=== PATIENT | female | born 1965 | race Caucasian/White ===

== ENCOUNTER 2021-02-13 01:20 | Emergency (ER) | payer OTHER, SELFPAY ==
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
[2021-02-13 01:28] VITALS: BP 152/93; PULSE 115; RESP 18; TEMP 36.8; O2SAT 98
--- NOTE | 2021-02-13 02:11 | PC.NURSE ---
[facility] they are willing to take the patient home but they are currently busy they will come get her when they are free. Rn discussed this with the patient she just wants to leave.
[2021-02-13 02:12] VITALS: BP 139/85; PULSE 101; RESP 18; O2SAT 100
== END 2021-02-13 02:13 | disposition home or self-care (01) ==
PROVIDERS: Emergency Provider Emergency Medicine; PCP Nurse Practitioner
DX: F43.0 Acute stress reaction (principal); S61.512A Laceration without foreign body of left wrist, initial encounter; R45.88 Nonsuicidal self-harm; W26.9XXA Contact with unspecified sharp object(s), initial encounter
CPT/HCPCS: 99282

== ENCOUNTER 2021-10-11 18:35 | Emergency (ER) | payer OTHER, SELFPAY ==
--- NOTE | ~2021-10-11 | XR_ITS ---
EXAM: XR foot RT min 3V DATE: 10/11/2021 18:52 HISTORY: diffuse rt foot pain for weeks ? etiology . COMPARISON: None available. FINDINGS: Decreased mineralization. No fracture or dislocation. No lytic or blastic lesion. Joint sp aces are maintained. Plantar and Achilles enthesopathy. No erosion or periosteal change. Soft tissues within normal limits. IMPRESSION: No acute osseous finding in the right foot. Reviewed, dictated and finalized at location K.
[2021-10-11 18:42] VITALS: BP 132/65; PULSE 108; RESP 16; TEMP 36.3; O2SAT 99
--- NOTE | 2021-10-11 18:45 | ED.LOWEXIN ---
HPI - Extremity Injury (Lower) General Chief Complaint: Extremity Injury, Lower Stated Complaint: right foot pain Time Seen by Provider: 10/11/21 18:41 Source: patient and RN notes reviewed Mode of arrival: ambulatory Limitations: no limitations History of Present Illness HPI Narrative: 56-year-old female presents to [facility] with complaints of right foot pain. Patient complains of pain to the dorsal aspect of right foot. Denies any injury. No treatment prior to arrival. Patient reports that it was swollen earlier. Related Data Home Medications Medication Instructions Recorded Confirmed albuterol sulfate 90 mcg/actuation inh inhalation 10/11/21 aerosol inhaler buspirone 7.5 mg tablet tablet 10/11/21 diazepam 2 mg tablet tablet 10/11/21 duloxetine 30 mg capsule,delayed cap PO 10/11/21 release duloxetine 60 mg capsule,delayed cap PO 10/11/21 release mirtazapine 30 mg tablet tablet 10/11/21 prazosin 5 mg capsule cap 10/11/21 quetiapine 100 mg tablet tablet 10/11/21 trazodone 100 mg tablet tablet 10/11/21 Allergies Allergy/AdvReac Type Severity Reaction Status Date / Time Penicillins Allergy Unknown HIVES,RED Verified 10/14/16 10:10 FACE Review of Systems Review of Systems: All systems reviewed & are unremarkable except as noted in HPI and below Constitutional: Constitutional: Reports no additional constitutional complaints, Denies chills and Denies fever(s) Eyes: Eyes: Reports no additional eye complaints ENT: Reports system reviewed and no additional complaints, except as documented Cardiovascular: Cardiovascular: Reports no additional cardiovascular complaints Respiratory: Respiratory: Reports no additional respiratory complaints Gastrointestinal: Gastrointestinal: Reports no additional gastrointestinal complaints Musculoskeletal: Musculoskeletal: Reports as per HPI and Reports arthralgias (Right dorsal foot) Integumentary/Breasts: Skin/Breast: Reports system reviewed and no additional complaints, except as docu Neurologic: Reports system reviewed and no additional complaints, except as documented Psychiatric: Psychiatric: Reports no additional psychiatric complaints Allergic/Immunologic: Allergic/Immunologic: Reports no additional allergic/immunologic complaints [facility] Past Medical History Medical History (Updated 10/11/21 @ 20:18 by Shellie Chao APRN) Anxiety and depression Asthma Social History Social History Substance use type: does not use Comments At the time of my signature, I reviewed and agree with the nursing past medical, surgical, social, and family history. There is no relevant family history pertinent to the patient complaint. Exam Const: General: healthy appearing, no acute distress and alert Nutritional Appearance: well nourished Orientation/consciousness: patient oriented x3 Limitations: no limitations HENMT: Head: normal to inspection Ears: external ears normal Eyes: General: appearance normal, both eyes and all related structures Pupils: Equal, round and reactive pupils present Neck: Neck: normal visual inspection, no lymphadenopathy and no meningeal signs Chest: Chest palpation & inspection: normal inspection of the chest Resp: Effort & Inspection: normal respiratory effort and no use of accessory muscles Auscultation: clear to auscultation bilaterally, no crackles, no rales, no rhonchi and no wheezes Cardio: Rate: regular rate Rhythm: regular rhythm GI: GI Palp: Yes Soft to palpation and No Tenderness to palpation present (GI) Back/Spine/Pelvis: Cervical Spine: normal cervical lordosis Thoracic/Lumbar Spine: thoracic and lumbar spine normal to inspection Skin: General skin exam: normal color Rashes: no rashes Wounds: no wounds Neuro: General: patient oriented x3, moves all extremities, no meningeal signs and no focal motor deficits Cranial nerves: Yes Equal, round a
[2021-10-11 18:46] VITALS: BP 132/65; PULSE 108; RESP 16; TEMP 36.3; O2SAT 99
== END 2021-10-11 19:12 | disposition home or self-care (01) ==
PROVIDERS: Emergency Provider Nurse Practitioner
DX: M79.671 Pain in right foot (principal); F41.9 Anxiety disorder, unspecified; F32.9 Major depressive disorder, single episode, unspecified; J45.909 Unspecified asthma, uncomplicated
CPT/HCPCS: 73630; 99213; G0463

== ENCOUNTER 2022-04-19 13:08 | Emergency (ER) | payer OTHER, SELFPAY ==
--- NOTE | 2022-04-19 13:12 | ED.CHESTPAIN ---
HPI - Chest Pain General Stated Complaint: Chest Pain/Back Pain/Anxiety Time Seen by Provider: 04/19/22 13:10 Source: patient Mode of arrival: ambulatory Limitations: no limitations History of Present Illness HPI narrative: Ms Gooden is a 56-year-old female patient presenting to the clinic today with complaints of chest pain, back pain, and anxiety x 1 week. She reports symptoms have been intermittent x1 week however today is been pretty constant. She reports she has a dull ache and sometimes sharp stabbing pain to the left mid chest. She denies any heavy lifting or any injury. Does state that she has had shortness of breath with exertion. Also reporting some dizziness and sweating. History of anxiety with panic attacks however she states this is not feeling like a normal panic attack. She is a smoker Related Data Home Medications Medication Instructions Recorded Confirmed albuterol sulfate 90 mcg/actuation inh inhalation 10/11/21 aerosol inhaler buspirone 7.5 mg tablet tablet 10/11/21 duloxetine 30 mg capsule,delayed cap PO 10/11/21 release duloxetine 60 mg capsule,delayed cap PO 10/11/21 release mirtazapine 30 mg tablet tablet 10/11/21 prazosin 5 mg capsule cap 10/11/21 trazodone 100 mg tablet tablet 10/11/21 Allergies Allergy/AdvReac Type Severity Reaction Status Date / Time Penicillins Allergy Unknown HIVES,RED Verified 04/19/22 13:16 FACE Review of Systems Review of Systems: Pertinent positives per HPI. Patient denies any fever, chills, rash, headache, visual changes, dizziness, cough, runny nose, sore throat, shortness of breath, palpitations, nausea, vomiting, diarrhea, constipation, abdominal pain, or any urinary issues. [facility] Past Medical History Medical History (Updated 04/19/22 @ 13:43 by Alphonse Anguiano APRN) Anxiety and depression Asthma Social History Social History Substance use type: does not use Comments At the time of my signature, I reviewed and agree with the nursing past medical, surgical, social, and family history. There is no relevant family history pertinent to the patient complaint. Exam Narrative: General: Well-developed, obese, in no apparent distress Head: Normocephalic, atraumatic. Cardio: Regular rate and rhythm, s1 and s2 normal, no murmur appreciated. Resp: Clear to auscultation bilaterally, no rhonchi, rales, wheezing or rubs. Extremities: No deformity, no edema, no cyanosis, capillary refill less than 2 seconds, peripheral pulses palpable and strong. Integumentary: [place], warm, and dry, intact without lesion, no rashes. Course Course Emergency Course: Portions of this record may have been created with voice recognition software. Level of Care: Express Care Visit Vital Signs Vital signs: Vital signs reviewed MDM - Chest Pain MDM Narrative Medical decision making narrative: At the time of visit patient is resting comfortably on exam table. EKG shows sinus rhythm with heart rate 95 beats per minute. Recommend transfer to the ED for further evaluation. Patient agrees to transfer however she declines EMS. AMA form was completed for EMS declination. Risk and benefits were explained to the patient she voiced understanding. Contacted Katherine BUCKLEY at [facility] for continuity of care. Differential Diagnosis Differential diagnosis: Likely stable angina, unstable angina pectoris, atypical chest pain, st elevation myocardial infarction, chest pain and other ( pancreatitis, PE) ECG Data EKG #1: Attestation: I personally reviewed and interpreted this ECG as follows: ECG completion date: 04/19/22 ECG completion time: 13:30 Interpretation: EKG shows normal sinus rhythm with a heart rate of 95 beats per minute with possible left atrial enlargement. HI interval is 155 milliseconds, QRS durations 86 milliseconds, QT -QTC is 351-404 milliseconds, P-R-T axes
[2022-04-19 13:16] VITALS: BP 101/61; PULSE 109; RESP 16; TEMP 36.2; O2SAT 99
[2022-04-19 13:17] VITALS: BP 101/61; PULSE 109; RESP 16; TEMP 36.2; O2SAT 99
--- NOTE | 2022-04-19 13:20 | ECG_ITS ---
Measurements Intervals [place] Rate: 95 P: 33 MS: 155 QRS: 33 QRSD: 86 T: 52 QT: 351 QTc: 443 Interpretive Statements SINUS RHYTHM POSSIBLE LEFT ATRIAL ENLARGEMENT BORDERLINE ECG NO PREVIOUS ECG AVAILABLE FOR COMPARISON Electronically Signed On 04-20-2022 7:56:10 [employer] by Dmitriy Carolina D.O.
== END 2022-04-19 13:38 | disposition short-term general hospital (02) ==
PROVIDERS: Emergency Provider Nurse Practitioner Family; PCP Nurse Practitioner
DX: R07.9 Chest pain, unspecified (principal); R06.00 Dyspnea, unspecified; M54.6 Pain in thoracic spine; R42 Dizziness and giddiness; J45.909 Unspecified asthma, uncomplicated; F32.A Depression, unspecified; F41.9 Anxiety disorder, unspecified; F17.200 Nicotine dependence, unspecified, uncomplicated; F41.0 Panic disorder [episodic paroxysmal anxiety]
CPT/HCPCS: 93005; 99213; G0463

== ENCOUNTER 2023-12-25 07:40 | Emergency (ER) | payer BC, SELFPAY ==
[2023-12-25] VITALS (9 sets, daily range): BP systolic 127–137; BP diastolic 66–74; PULSE 64–98; RESP 14–17; TEMP 36.5–36.6; O2SAT 96–100
--- NOTE | ~2023-12-25 | XR_ITS ---
EXAMINATION: XR chest 2V DATE: 12/25/2023 08:36 INDICATION: 2 weeks of weakness TECHNIQUE: PA and lateral views of the chest were obtained. COMPARISON: Chest radiograph dated 12/05/2014 FINDINGS: The lungs remain clear with no focal airspace opacities, pulmonary edema, pleural effusion or pneumot horax. The cardiomediastinal silhouette is normal. Mild thoracic spondylosis with chronic mild anteri or wedging of a few mid and lower thoracic vertebral bodies. IMPRESSION: 1. No acute cardiopulmonary disease. Reviewed, dictated and finalized at location A.
--- NOTE | 2023-12-25 08:00 | ECG_ITS ---
Test Date: 2023-12-25 08:07:22 Measurements Intervals [place] Rate: 75 P: 26 CT: 163 QRS: 7 QRSD: 80 T: -8 QT: 390 QTc: 437 Interpretive Statements SINUS RHYTHM WITH SINUS ARRHYTHMIA CONSIDER NFERIOR INFARCT, AGE INDETERMINATE ABNORMAL ECG No previous ECG available for comparison Electronically Signed On 12-25-2023 15:15:42 CDT by Dmitriy Carolina D.O.
[2023-12-25 08:57] LABS: Basophils Absolute Auto 0.1 K/mm3 (0.0-0.1); Basophils Percent Auto 1.5 % (0.2-1.2); Eosinophils Absolute Auto 0.3 K/mm3 (0-0.3); Eosinophils Percent Auto 4.2 % (0-4.4); Hematocrit 42.6 % (37.0-47.0); Hemoglobin 14.2 g/dL (12.0-15.0); Immature Granulocyte Absolute 0.01 K/mm3 (0.00-0.031); Immature Granulocyte Percent A 0.2 % (0-0.5); Lymphocytes Absolute Auto 2.63 K/mm3 (0.9-3.2); Lymphocytes Percent Auto 39.8 % (18.3-44.2); Mean Corpuscular HGB Conc 33.3 g/dl (32-36); Mean Corpuscular Volume 101.9 fl (80-100); Mean Platelet Volume 9.9 fl (7.4-10.4); Monocytes Absolute Auto 0.6 K/mm3 (0.1-0.6); Monocytes Percent Auto 8.8 % (2.6-8.5); Neutrophils Percent Auto 45.5 % (45.5-73.1); Platelet Count Result 268 k/mm3 (150-375); Red Blood Count 4.18 M/mm3 (4.2-5.4); Red Cell Distribution Width 13.1 % (11.5-14.5); White Blood Count 6.6 K/mm3 (4.5-10.0)
[2023-12-25 09:01] LABS: Add Urine Microscopic? YES; Appearance Urine Cloudy (Clear); Bacteria Urine Rare /hpf; Bilirubin Urine Negative (Negative); Blood Urine Negative (Negative); Color Urine Yellow (Yellow); Glucose Urine UA Negative (Negative); Ketones Urine Negative (Negative); Leukocyte Esterase Ur 3+ LEU/UL (Negative); Nitrate Urine Negative (Negative); Non Pathogenic Casts 0-2; Protein Urine Negative (Negative); RBC Urine 0-2 /hpf (0-2); Specific Grav Ur 1.015 (1.001-1.035); Squamous Epithelial Cell Urine Few /hpf (Few); WBC Urine 21-50 /hpf (0-3)
[2023-12-25 09:08] LABS: Alanine Aminotransferase 22 U/L (6-35); Alkaline Phosphatase 86 U/L (38-126); Anion Gap 6 mmol/L (4-12); Aspartate Amino Transferase 32 U/L (14-36); Bilirubin,Total 0.9 mg/dL (0.2-1.3); Blood Urea Nitrogen 10 mg/dL (7-17); Calcium 9.3 mg/dL (8.4-10.2); Carbon Dioxide 29 mmol/L (22-30); Chloride 106 mmol/L (98-107); Estimated CRCL calculation 100 ml/min; Estimated Glomerular Filt Rate > 60; Glucose 103 mg/dL (65-110); Potassium 3.9 mmol/L (3.4-5.0); Sodium 141 mmol/L (137-145)
[2023-12-25] MEDS: SODIUM CHLORIDE 0.9% IV 1,000 ML 999 ML IV CONT (09:41)
[2023-12-25] MEDS: MECLIZINE HCL 25 MG TABLET PO (09:41)
[2023-12-25 09:44] LABS: Influenza A QL RT-PCR Negative (Negative); Influenza B QL RT-PCR Negative (Negative); RSV RNA, RT-PCR Negative (Negative); SARS-CoV-2 RNA PCR Negative (Negative)
--- NOTE | 2023-12-25 10:58 | ED.WEAKNESS ---
HPI - Weakness General Chief complaint: Weakness Stated complaint: lethargy Time Seen by Provider: 12/25/23 07:50 History of Present Illness HPI Narrative: Patient is a 58-year-old female who presents ER with weakness and fatigue. Ongoing for the last 2 weeks. No runny nose or sore throat or productive cough. She has had some mild nausea vomiting but no diarrhea. She will get spinning dizziness. She has had mild congestion. No alleviating factors. Related Data Home Medications Medication Instructions Recorded Confirmed albuterol sulfate 90 mcg/actuation inh inhalation 10/11/21 aerosol inhaler buspirone 7.5 mg tablet tablet 10/11/21 duloxetine 30 mg capsule,delayed cap PO 10/11/21 release duloxetine 60 mg capsule,delayed 60 cap PO BID 10/11/21 release mirtazapine 30 mg tablet tablet 10/11/21 prazosin 5 mg capsule cap 10/11/21 trazodone 100 mg tablet tablet 10/11/21 Allergies Allergy/AdvReac Type Severity Reaction Status Date / Time Penicillins Allergy Unknown HIVES,RED Verified 04/19/22 13:16 FACE Review of Systems Review of Systems: All systems reviewed & are unremarkable except as noted in HPI and below Constitutional: Constitutional: Denies chills, Reports fatigue, Denies fever(s) and Reports weakness ENT: Reports dizziness, Reports nasal congestion and Denies sore throat Cardiovascular: Cardiovascular: Reports no additional cardiovascular complaints Respiratory: Respiratory: Reports no additional respiratory complaints Gastrointestinal: Gastrointestinal: Denies abdominal pain, Denies diarrhea, Reports nausea and Reports vomiting Musculoskeletal: Musculoskeletal: Reports no additional musculoskeletal complaints PMFSH Past Medical History Medical History (Updated 12/25/23 @ 11:04 by Tyler Calixto MD) Anxiety and depression Asthma Social History Social History Substance use type: does not use Exam Narrative: GENERAL: Well-appearing, well-nourished, and in no acute distress. HEAD: Normocephalic, atraumatic. ENT: Mucous membranes moist. TM's normal bilaterally. CHEST: Clear to auscultation. No respiratory distress. HEART: Regular rate and rhythm. Normal peripheral pulses. ABDOMEN: Soft, nontender, nondistended. EXTREMITIES: Normal range of motion. No edema. SKIN: Warm, dry, no rash. NEURO: Alert and oriented x3. PSYCH: Normal mood and affect. Course Course Emergency Course: Patient resting comfortably. Hydrated. Received meclizine. Dizziness improved. Urinalysis with 21-50 white blood cells and 3+ leukocyte esterase. Will treat for UTI. Chest x-ray without pneumonia. Viral testing negative. Unremarkable CMP/CBC. Vital Signs Vital signs: Vital Signs Temperature 97.7 F 12/25/23 08:01 Pulse Rate 75 12/25/23 08:01 Respiratory Rate 16 12/25/23 08:01 Blood Pressure 130/73 12/25/23 08:01 Pulse Oximetry 97 12/25/23 08:01 Temperature 97.8 F 12/25/23 09:00 Pulse Rate 75 12/25/23 09:00 Respiratory Rate 14 12/25/23 09:00 Blood Pressure 136/70 12/25/23 09:00 Pulse Oximetry 100 12/25/23 09:00 MDM - Weakness Lab Data 12/25/23 08:51 12/25/23 08:51 Labs: Lab Results 12/25/23 12/25/23 Range/Units 08:51 09:04 WBC 6.6 (4.5-10.0) K/mm3 RBC 4.18 L (4.2-5.4) M/mm3 Hgb 14.2 (12.0-15.0) g/dL Hct 42.6 (37.0-47.0) % MCV 101.9 H (80-100) fl MCH 34.0 (26-34) pg MCHC 33.3 (32-36) g/dl RDW 13.1 (11.5-14.5) % Plt Count 268 (150-375) k/mm3 MPV 9.9 (7.4-10.4) fl Immature Gran % (Auto) 0.2 (0-0.5) % Neut % (Auto) 45.5 (45.5-73.1) % Lymph % (Auto) 39.8 (18.3-44.2) % [place] % (Auto) 8.8 H (2.6-8.5) % Eos % (Auto) 4.2 (0-4.4) % Baso % (Auto) 1.5 H (0.2-1.2) % Lymph # (Auto) 2.63 (0.9-3.2) K/mm3 [place]rentiss # (Auto) 0.6 (0.1-0.6) K/mm3 Eos # (Auto) 0.3 (0-0.3) K/mm3 B
== END 2023-12-25 11:33 | disposition home or self-care (01) ==
PROVIDERS: Emergency Provider Emergency Medicine
DX: N39.0 Urinary tract infection, site not specified (principal); R42 Dizziness and giddiness; Z20.822 Contact with and (suspected) exposure to COVID-19; F41.9 Anxiety disorder, unspecified; F32.A Depression, unspecified; J45.909 Unspecified asthma, uncomplicated
CPT/HCPCS: 36415; 71046; 80053; 81001; 85025; 87086; 87088; 87637; 93005; 96360; 99283; A9270; J7030

== ENCOUNTER 2024-04-12 16:18 | Emergency (ER) | payer BC, SELFPAY ==
--- NOTE | 2024-04-12 17:25 | PC.NURSE ---
NO ANSWER WHEN CALLED. PT NOT FOUND IN WAITING ROOM FOR TRIAGE.
--- OUTSIDE RECORDS SUMMARY | 2024-04-20 02:57 | XMS_ITS | Referral Summary ---
Author Organization [facility] Address [address] [place] [address] Care Team Providers Care Fire Alarm Inspector Name Role Phone Unavailable Primary Care Provider Unavailabl e Source Comments [facility],non-owned Affiliates and Associated Physician Practices is amultiple site organization consisting of ambulatory clinics and hospital sitesin [place], [place], [place] and [place]. This disclosure is being madepursuant to the Care Everywhere program and may not contain all information available regarding this patient. Last updated 17.[facility] Octro Allergies Active Allergy Reactions Criticality Noted Date Comments Penicillins Rash Medium 02/11/2021 Medications * Be aware that medications may not be up to date on this document. Alwaysverify current medications with the patient. Medication Sig Dispensed Refills Start Date End Date Status DULoxetine (CYMBALTA) 30 MG capsuleIndications :Generalized Anxiety Disorder,Major Depressive Disorder Take 1 (one) capsule by mouth once daily Reasons: Generalized Anxiety Disorder, Major Depressive Disorder 30 capsule 02/11/2021 Active ALPRAZolam (XANAX) 0.5 MG tabletIndications: Anxiety Take 1 (one) tablet by mouth once daily as needed for Anxiety Reasons: Feeling Anxious 30 tablet 02/11/2021 Active Social History Tobacco Use Types Packs/Day Years Used Date Smoking Tobacco: Every Day Cigarettes Smokeless Tobacco: Never Tobacco Cessation:Ready to Q uit: No; Counseling Given: Yes Alcohol Use Standard Drinks/Week Comments Yes 2 (1 standard drink = 0.6 oz pure alcohol) 2 - 4 drinks per day for the past month Sex and Gender Information Value Date Recorded Sex Assigned at Not on file Gender Identity Not on file Sexual Orientation Not on file Last Filed Vital Signs Vital Sign Reading Time Taken Comments Blood Pressure 152/99 02/11/2021 12:24 PM CDT Pulse 102 02/11/2021 12:24 PM CDT Temperature 36.9 ??C (98.5 ??F) 02/11/2021 1 2:24 PM CDT Respiratory Rate 18 02/11/2021 12:2 4 PM CDT Oxygen Saturation 100% 02/11/2021 12: 24 PM CDT Inhaled Oxygen Concentration - - Weight 107.4 kg (236 lb 12.8 oz) 2020 12:24 PM CDT Height 170.2 cm (5' 7 ) 02/11/2021 12:2 4 PM CDT Body Mass Index 37.09 02/11/2021 12:24 PM CDT Plan of Treatment Not on file
--- OUTSIDE RECORDS SUMMARY | 2024-04-20 02:57 | XMS_ITS | Patient Health Summary ---
Author Organization [facility] Address [address] [place] [address] Care Team Providers Care Ehs Manager Name Role Phone Unavailable Primary Care Provider Unavailabl e Note from [facility],non-owned Affiliates and Associated Physician Practices is amultiple site organization consisting of ambulatory clinics and hospital sitesin [place], [place], [place] and [place]. This disclosure is being madepursuant to the Care Everywhere program and may not contain all information available regarding this patient. Last updated 17.[facility] BusyFlow Allergies * Penicillins(Rash) -Medium Criticality Medications * Be aware that medications may not be up to date on this document. Alwaysverify current medications with the patient. * DULoxetine (CYMBALTA) 30 MG capsule(Started 02/11/2021) Take 1 (one) capsule by mouth once daily Reasons: Generalized Anxiety Disorder, Major Depressive Disorder * ALPRAZolam (XANAX) 0.5 MG tablet(Started 02/11/2021) Take 1 (one) tablet by mouth once daily as needed for Anxiety Reasons: Feeling Anxious Social History Tobacco Use Types Packs/Day Years [...]
--- OUTSIDE RECORDS SUMMARY | 2024-04-20 02:57 | XMS_ITS | Encounter Summary ---
Author Organization [facility] Address [address] [place] [address] [place] [address] Care Team Providers Care Pillowcase Cutter Name Role Phone Unavailable Primary Care Provider Unavailabl e Encounter Details Date Type Department Care Team (Latest Contact Info) Description 02/11/2021 Travel Social History Tobacco Use Types Packs/Day Years Used Date Smoking Tobacco: Every Day Cigarettes Smokeless Tobacco: Never Alcohol Use Standard Drinks/Week Comments Yes 2 (1 standard drink = 0.6 oz pure alcohol) 2 - 4 drinks per day for the past month Sex and Gender Information Value Date Recorded Sex Assigned at Not on file Gender Identity Not on file Sexual Orientation Not on file COVID-19 Exposure Response Date Recorded In the last month, have you been in contact with someone who was confirmed or suspected to have Coronavirus / COVID-19? No / Unsure 02/11/2021 11:55 AM CDT documented as of this encounter Plan of Treatment Not on file documented as of this encounter Visit Diagnoses Not on filedocumented in this encounter
--- OUTSIDE RECORDS SUMMARY | 2024-04-20 02:57 | XMS_ITS | Clinical Summary ---
Author Organization [facility] Address [address] [place] [address] Care Team Providers Care It Investment/Portfolio Manager Name Role Phone Unavailable Primary Care Provider Unavailabl e Source Comments [facility],non-owned Affiliates and Associated Physician Practices is amultiple site organization consisting of ambulatory clinics and hospital sitesin [place], [place], [place] and [place]. This disclosure is being madepursuant to the Care Everywhere program and may not contain all information available regarding this patient. Last updated 17.[facility] EDMdesigner Allergies Active Allergy Reactions Criticality Noted Date [...] 02/11/2021 12:24 PM CDT Plan of Treatment Health Maintenance Due Date Last Done Comments COLOGUARD (AGES 45-75) - COL ON CA SCREENING 1966 COLON MONITORING 1966 COLONOSCOPY - COLON CA SCREENING 1966 CT COLONOGRAPHY - COLON CA SCREENING 1966 Colorectal Cancer Screening 1966 FIT - COLON CA SCREENING 1966 FLEX SIG - COLON CA SCREENING 1966 LIPID TESTING 1966 MAMMOGRAM 1966 PAP SMEAR 1966 PNEUMOCOCCAL VACCINE (1 of 2 - PCV) 1972 HIV SCREENING 1981 HEPATITIS C SCREENING 07/24/1984 DTAP/TDAP/TD VACCINES (1 - Tdap) 1985 HEPATITIS B VACCINE (1 of 3 - 19+ 3-dose series) 1985 ZOSTER VACCINE (1 of 2) 2016 COVID-19 VACCINE ( - 2023-2 5 season) 2023 INFLUENZA VACCINE (#1) 2023 DEPRESSION SCREENING 04/11/2024 HIB VACCINE Aged Out No longer eligi ble based on patient's age to complete this topic HPV VACCINE Aged Out No longer eligi ble based on patient's age to complete this topic MENINGOCOCCAL VACCINE Aged Out No jamel balwinder eligible based on patient's age to complete this topic
--- OUTSIDE RECORDS SUMMARY | 2024-04-20 02:57 | XMS_ITS | CONTINUITY OF CARE DOCUMENT ---
Author Name christina rhiannaeron Address Unknown Organization [facility] Address [address] [place] [address] Phone [phone] Care Team Providers Care Earth Science Professor Name Role Phone Lexii BURNS, Nacho Unavailable [phone] RAHEEL FURNITURE FINISHER HELPER, MARIE Unavailable RAHEEL FURNITURE FINISHER HELPER, MARIE Unavailable [phone] PROBLEMS Condition Status Date Provider Notes Dyspnea on exertion active Juan Carlos Sánchez MD Abnormal EKG active Juan Carlos Sánchez MD Anxiety active Juan Carlos Sánchez MD Asthma active Juan Carlos Sánchez MD Depression active Juan Carlos Sánchez MD Tobacco abuse active Juan Carlos Sánchez MD Obesity active Juan Carlos Sánchez MD Chest pain active Juan Carlos Sánchez MD Screening active Juan Carlos Sánchez MD ENCOUNTERS Date Type Provider Location Encounter Diag nosis - In-person encounter Office Visit Juan Carlos Sánchez MD [place] Office ScreeningChest painObesityTobacco abuseDepressionAsthmaAnxietyAbnormal EKGDyspnea on exertion VITAL SIGNS Date Observation Value Provider Body Mass Index (Ratio) 35.39 kg/m2 Renard Sánchez MD blood pressure, diastolic 80 mm[Hg] Rosangela nkLogic blood pressure, systolic 110 mm[Hg] Cordelia Garcia blood pressure, cuff size large Tr melvi Bush blood pressure, diastolic 80 mm[Hg] Tr melvi Bush blood pressure, systolic 110 mm[Hg] Shannan ponce Bush oxygen saturation, oximetry 96 % Doreen Bush respiratory rate E&M 18 /min Doreen Bush pulse rate 118 /min Doreen Bush weight E&M 226 [lb_av] Doreen Bush height E&M 67 [in_i] Doreen Bush ALLERGIES No Known Drug Allergies HISTORY OF MEDICATION USE Medication Status Instructions Dates Provider Indications Com ments duloxetine 30 mg capsule,delayed release(DR/EC) active Juan Carlos Sánchez MD hydrochlorothiazide 25 mg tablet active Juan Carlos Sánchez MD alprazolam 1 mg tablet completed - Juan Carlos Sánchez MD trazodone 100 mg tablet active Juan Carlos Sánchez MD hydroxyzine HCl 25 mg tablet active Juan Carlos Sánchez MD albuterol sulfate 90 mcg/actuation HFA aerosol inhaler active Juan Carlos Sánchez MD SOCIAL HISTORY Date Observation Value Provider number of grandchildren Juan Carlos Sánchez MD U messi Sánchez MD smoking/tobacco cess ation, patient education and counseling yes Juan Carlos Sánchez MD social history E&M S moking History: Andre payam currently smokes every day. P atkuldeep has been counseled to quit. Juan Carlos Sánchez MD social history reviewed E&M revi ewed - no changes required Juan Carlos Sánchez MD smoking history, total pack/day 20 Doreen Buhs cigarette use yes Doreen livingston smoking status Current every day smoker T will Bush INSURANCE PROVIDERS Payer name Policy type / Coverage type [place] red republican ID [employer] [facility] Medicaid [id number] TREATMENT PLAN Date Name Performer [id number],S, H as lost 48 lbs in the last 4 months which she attributes to stress. Juan Carlos Sánchez MD [id number],W, S harp, stabbing quality, which is different from the usual dull achy anxiety related pain. She has an abnormal EKG and says she is more dyspneic on exertion than she used to be. As she has several risk factors for CAD, we will check a stress test to r/o obstructive CAD and evaluate her LVF. Juan Carlos Sánchez MD [id number],N, Juan Carlos Sánchez MD [id number],S, F /w psychiatry. Juan Carlos Sánchez MD [id number],S, T he Patient was reencouraged to stop smoking. Juan Carlos Sánchez MD Cardiology: H as lost 48 lbs in the last 4 months which she attributes to stress. Juan Carlos Sánchez MD Cardiology: S harp, stabbing quality, which is different from the usual dull achy anxiety related pain. She has an abnormal EKG and says she is more dyspneic on exertion than she used to be. As she has several risk factors for CAD, we will check a stress test to r/o obstructive CAD and evaluate her LVF. Juan Carlos Sánchez MD Cardiology Juan Carlos Sánchez MD Cardiology: F /w psychiatry. Juan Carlos Sánchez MD Cardiology: T he Patient was reencouraged to stop smoking. Juan Carlos Sánchez MD Date Name Complete Echo Stress Exercise Card iolite HISTORY OF PROCEDURES Procedure Date Procedure Name Provider Procedure Notes S tatus EKG Juan Carlos Sánchez MD completed
--- OUTSIDE RECORDS SUMMARY | 2024-04-20 02:58 | XMS_ITS | Clinical Summary ---
Author Organization [facility] Address [address] [place] [address]. [place], [place] [address] [place] [address] Care Team Providers Care Radiator Fitter Name Role Phone Rogers Harvey MD Primary Care Provider Social History Tobacco Use Types Packs/Day Years Used Date Smoking Tobacco: Never Assessed Comments Unknown Sex and Gender Information Value Date Recorded Sex Assigned at Not on file Legal Sex Female 4:09 PM CDT Gender Identity Not on file Sexual Orientation Not on file Plan of Treatment Health Maintenance Due Date Last Done Comments Cervical Cancer Screening Pa p Smear (Age 30 to 64) Every 3 Years 1966 Colorectal Cancer Screening Colonoscopy (10 Years) 1966 Annual Physical 1969 Hepatitis C 1984 DTaP, Tdap and Td Vaccines ( 1 - Tdap) 1985 Hepatitis B Vaccines (1 of 3 - 19+ 3-dose series) 1985 Cervical Cancer Screening Pa p with HPV Testing (Age 30 to 64) Every 5 Years 1996 Cervical Cancer Screening with HPV 1996 Mammogram Screening 2006 Zoster Vaccines (1 of 2) 2016 COVID-19 Vaccine (2023-2 5 season) 2023 Influenza Adult (#1) 2024 Meningococcal Vaccine Aged Out No jamel balwinder eligible based on patient's age to complete this topic Pneumococcal Vaccine: Pediat rics (0 to 5 Years) and At-Risk Patients (6 to 64 Years) Aged Out No longer eligible b ased on patient's age to complete this topic RSV Immunizations Under 20 Months Aged Out No longer eligible based on patient's age to complete this topic Care Teams Radiator Fitter Relationship Specialty Start Date End Date Rogers Harvey MD [facility] [place] [address] PCP - General 06/25/14
--- OUTSIDE RECORDS SUMMARY | 2024-04-20 02:58 | XMS_ITS | Encounter Summary ---
Author Organization [facility] Address [facility] [facility] [facility] [place] [address] [place] [address] Care Team Providers Care Cable Maintainer Name Role Phone Rogers Harvey MD Primary Care Provider Encounter Details Date Type Department Care Team (Late st Contact Info) Description 06/25/2014 Abstract [facility] [place] [address] Román Lr MD [address] [place] [address] [address] [place] [address] Social History Tobacco Use Types Packs/Day Years Used Date Smoking Tobacco: Never Assessed Comments Unknown Sex and Gender Information Value Date Recorded Sex Assigned at Not on file Legal Sex Female 4:09 PM CDT Gender Identity Not on file Sexual Orientation Not on file documented as of this encounter Plan of Treatment Not on file documented as of this encounter Visit Diagnoses Diagnosis Major depressive disorder, recurrent episode, moderate ([facility]/HCC [facility]) Major depressive disorder, recurrent episode, moderate documented in this encounter Care Teams Cable Maintainer Relationship Specialty Start Date End Date Rogers Harevy MD [address] [place] [address] PCP - General 06/25/14 documented as of this encounter
--- OUTSIDE RECORDS SUMMARY | 2024-04-20 02:58 | XMS_ITS | Encounter Summary ---
Author Organization [facility] Address [address] [place] [address]. [place], [place] [address] [place] [address] Care Team Providers Care Strip Mine Supervisor Name Role Phone Rogers Harvey MD Primary Care Provider [phone] Encounter Details Date Type Department Care Team (Late st Contact Info) Description 03/10/2020 Patient Self-Triage [facility]CHART DEPARTMENT [address] [place] [address] Veronique, [facility] Provider Social History Tobacco Use Types Packs/Day [...] Diagnoses Not on filedocumented in this encounter Care Teams Strip Mine Supervisor Relationship Specialty Start Date End Date Rogers Harvey MD [address] [place] [address] PCP - General 06/25/14 documented as of this encounter
--- OUTSIDE RECORDS SUMMARY | 2024-04-20 03:00 | XMS_ITS | Encounter Summary ---
Author Organization [facility] Address [address] [place] [address] Care Team Providers Care Oak Tanner Name Role Phone Unavailable Primary Care Provider Unavailabl e Encounter Details Date Type Department Care Team (Latest Contact Info) Description 10/25/2006 Outpatient Historical HIS CARD SENIOR ASIC DESIGN ENGINEER Rogers Manuel MD [address] [place] [address] Other Chest Pain (Primary Dx) Social History Tobacco Use Types Packs/Day Years Used Date Smoking Tobacco: Never Assessed Sex and Gender Information Value Date Recorded Sex Assigned at Not on file Gender Identity Not on file Sexual Orientation Not on file documented as of this encounter Plan of Treatment Not on file documented as of this encounter Visit Diagnoses Diagnosis Other chest pain- Primary documented in this encounter
--- OUTSIDE RECORDS SUMMARY | 2024-04-20 03:00 | XMS_ITS | Clinical Summary ---
Author Organization [employer] Address [address] Hamn: Epic Prelude ADT AVERY MCRAE [address] Care Team Providers Care Managed Care Specialist Name Role Phone Unavailable Primary Care Provider Unavailabl e Social History Tobacco Use Types Packs/Day Years Used Date Smoking Tobacco: Never Assessed Sex and Gender Information Value Date Recorded Sex Assigned at Not on file Gender Identity Not on file Sexual Orientation Not on file Plan of Treatment Health Maintenance Due Date Last Done Comments DTAP/TDAP/TD VACCINES (1 - Tdap) 1985 HEPATITIS B VACCINES (1 of 3 - 19+ 3-dose series) 1985 CERVICAL CANCER SCREENING 1996 BREAST CANCER SCREENING 2006 COLORECTAL SCREENING 07/30/2011 Colorectal Cancer Screening 07/30/2011 FIT-DNA Q 3 years 07/30/2011 FIT/FOBT Q 1 year 07/30/2011 Flex Sig/CT Colonography Q 5 years 07/30/2011 ZOSTER VACCINE (1 of 2) 2016 INFLUENZA VACCINE (#1) 2023 PNEUMOCOCCAL VACCINE 0-64 YEARS Aged Out No longer eligible based on patient's age to complete this topic
== END 2024-04-13 00:45 | disposition left against medical advice (07) ==
LOC: ANHED 04-13 00:31
DX: Z53.21 Procedure and treatment not carried out due to patient leaving prior to being seen by health care provider (principal)
CPT/HCPCS: 99199

== ENCOUNTER 2024-04-17 09:52 | Emergency (ER) | payer SELFPAY ==
--- NOTE | ~2024-04-17 | XR_ITS ---
3 VIEWS LUMBAR SPINE Ordering provider: Luisa Stephen MD History: . pain . Comparison: None. FINDINGS: VERTEBRAL BODIES:Compression fracture. with loss of volume of about 50%. No subluxation. Dextroscoliosis. DISK SPACES: Narrowing of the disc spaces in the lower thoracic area. SOFT TISSUES: Atherosclerotic changes of the aorta. IMPRESSION: Compression fracture of L1. MRI evaluation advised. Reviewed, dictated and finalized at location A. A DIRECTOR
[2024-04-17 10:17] VITALS: BP 131/65; PULSE 78; RESP 18; TEMP 37; O2SAT 99
--- NOTE | 2024-04-17 12:22 | ED_ITS ---
HPI - Back Pain/Injury General Chief Complaint: Back Pain/Injury Stated Complaint: back pain after fall last week Time Seen by Provider: 04/17/24 11:10 Source: patient Mode of arrival: ambulatory Limitations: no limitations History of Present Illness HPI Narrative: Patient presents with back pain after a ground level fall last week. 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 She laid on the ground for about 10 minutes due to the shock and how much pain she was in. It caused her to vomit for how intense it was. She came to the ED approximately 1 hour later but there was a long wait in the waiting room and she was in more pain seated so she left. No hematuria. Pain is localized to her low back without radiation. 5 out of 10 in severity. She has been having night sweats but attributes these to hot flashes with menopause; otherwise no known fevers. No incontinence. Has been taking ibuprofen but doesn't feel like it is helping. She nearly laid flat for the 2 days after, icing it intermittently. States the pain doesn't feel on the surface but in a bit. She will occasionally have paresthesias dwn her right leg. Has an appointmetn with her PCPtmorrow Natanael Brunner for a routine visit. Related Data Home Medications ?Medication ?Instructions ?Recorded ?Confirmed ?Last Taken ?Type albuterol sulfate 90 mcg/actuation inh inhalation 10/11/21 Unknown History aerosol inhaler buspirone 7.5 mg tablet tablet 10/11/21 Unknown History duloxetine 30 mg capsule,delayed cap PO 10/11/21 Unknown History release duloxetine 60 mg capsule,delayed 60 cap PO BID 10/11/21 Unknown History release mirtazapine 30 mg tablet tablet 10/11/21 Unknown History prazosin 5 mg capsule cap 10/11/21 Unknown History trazodone 100 mg tablet tablet 10/11/21 Unknown History Allergies Allergy/AdvReac Type Severity Reaction Status Date / Time Penicillins Allergy Unknown HIVES,RED Verified 04/17/24 10:22 FACE [facility] Past Medical History Medical History (Updated 04/17/24 @ 12:23 by Luisa Stephen MD) Asthma Anxiety and depression Social History Social History (Updated 04/17/24 @ 22:41 by Luisa Stephen MD) Substance use type: does not use Occupation/Education: occupation Additional occupation/education comments: Door Dash Exam Narrative: GENERAL: Well-appearing, well-nourished, and in no acute distress. HEAD: Normocephalic, atraumatic. EYES: Non injected, non icteric ENT: Nares clear, no rhinorrhea or epistaxis. NECK: Supple. CHEST: Speaking in full sentences. No respiratory distress. HEART: Regular rate and rhythm. . ABDOMEN: Soft, nondistended. EXTREMITIES: Normal range of motion. No lower extremity edema. SKIN: Warm, dry, no rash. BACK: No overlying ecchymosis. NEURO: No focal deficits. Alert and oriented x3. 5/5 strength bilateral ankle dorsi/plantarflexion, knee flexion/extension; hip flexion/abduction/adduction. Sensation intact throughout. No paraspinal tenderness. nO bony stepoffs. Demonstrates some flexion and extension and rotational movememtn. PSYCH: Normal mood and affect. Course Vital Signs Vital signs: Vital Signs Temperature 98.6 F 04/17/24 10:17 Pulse Rate 78 04/17/24 10:17 Respiratory Rate 18 04/17/24 10:17 Blood Pressure 131/65 04/17/24 10:17 Pulse Oximetry 99 04/17/24 10:17 Oxygen Delivery Room Air 04/17/24 10:17 Temperature 98.6 F 04/17/24 10:17 Pulse Rate 78 04/17/24 10:17 Respiratory Rate 18 04/17/24 10:17 Blood Pressure 131/65 04/17/24 10:17 Pulse Oximetry 99 04/17/24 10:17 Oxygen Delivery Room Air 04/17/24 10:17 MDM - Back Pain/Injury MDM Narrative Medical decision making narrative: Patient presents with low back pain after a fall on afternoon. In the emergency department they are afebrile with vital signs within normal limits. Back has no deformities, external skin changes, or signs of trauma. Curvature is within normal limits. No tenderness is noted on palpation of the spinous processes which are midline. Patient demonstrates flexion, extension, and [id number] rotation of the lumbar spine. Sensation to the lower extremities is normal bilaterally. Dorsi/plantar flexion is normal bilaterally. Imaging obtained from triage demonstrates compression fracture. [place] ordered. I did discuss the type of fracture patient has and we reviewed a drawing of this found online to demonstrate the location of the injury. She verifies understanding. Postvoid residual 0. Discussed multimodal pain approach including using opiates for breakthrough pain. discussed risks/benefits, alternatives, as well as proper use and disposal. She verifies understanding. [place] prescription monitoring database is reviewed and shows patient has filled alprazolam in March and this appears to be regular medication however no other controlled substances. Discharged home in stable condition with prescriptions for several medications. She already has a previously scheduled appointment with her PCP tomorrow. Discussed the need to inform them of this diagnosis in consideration of alterantive pain regimen, referral, physical therapy, advanced imaging, etc. Imaging Data Radiologist's impression: Impressions Lumbar Spine X-Ray 04/17/24 10:46 IMPRESSION: Compression fracture of L1. MRI evaluation advised. Discharge Plan Discharge Clinical Impression: Compression fracture of L1 vertebra Fall Qualifiers: Encounter type: sequela Qualified Code(s): W19.XXXS - Unspecified fall, sequela Patient Disposition: Home, Self-Care Condition: Stable Instructions: Antibiotic Form, Vertebral Compression Fracture (ED), Narcotic Safety (ED), Acute Low Back Pain (ED), Fall Prevention (ED), Lower Back Exercises (ED) Additional Instructions: Acetaminophen/Tylenol (maximum 4000 mg per day) is safe to take with NSAIDs (ibuprofen/Motrin) for pain relief. Use the other medications as prescribed as well for multimodal pain management strategy to target pain, inflammation, musc le relaxation, and topical approaches. For breakthrough pain, short course of opiate/narcotic medications as prescribed as we discussed. Keep your already scheduled appointment with primary care physician tomorrow and discuss obtaining MRI for further characterization of your L1 compression fracture. You may also require alternative pain management, physical therapy, etc. if pain continues. Return to the ER if you have increased pain in your back, you develop lower extremity weakness/numbness/paralysis, you have numbness or tingling in your private parts, or you are unable to control your ability to urinate/stool. Patient Language: Thai Prescriptions: New lidocaine 4 % adhesive patch,medicated 1 patch topical DAILY PRN (Reason: pain) Qty: 10 0RF methocarbamol 750 mg tablet 1,500 mg PO HS Qty: 14 0RF ibuprofen 600 mg tablet 600 mg PO TID PRN (Reason: pain) Qty: 30 0RF acetaminophen 500 mg capsule 1,000 mg PO Q6H PRN (Reason: pain) Qty: 30 0RF oxycodone 5 mg tablet 5 mg PO Q8H PRN (Reason: pain) Qty: 15 0RF No Action prazosin 5 mg capsule trazodone 100 mg tablet mirtazapine 30 mg tablet buspirone 7.5 mg tablet albuterol sulfate 90 mcg/actuation HFA aerosol inhaler INHALATION duloxetine 30 mg capsule,delayed release(DR/EC) PO duloxetine 60 mg capsule,delayed release(DR/EC) 60 cap PO BID nitrofurantoin monohyd/m-cryst [Macrobid] 100 mg capsule 100 mg PO Q12H 7 Days Qty: 14 0RF Rx Instructions: must administer with a meal/food meclizine 12.5 mg tablet 12.5 mg PO TID PRN (Reason: dizziness) Qty: 14 0RF Follow-up/Referrals: PHYSICIAN NOT ON STAFF,NONSTAFF [Primary Care Provider] - Stand Alone Forms: Work/School Release IP Time of Disposition: 12:48
[2024-04-17] MEDS: HYDROcodone/acetaminophen (*CRX) 5-325 MG TABLET 1 TAB PO (12:25)
[2024-04-17] MEDS: LIDOCAINE 5% PATCH 1 PATCH TRANSDERM (12:56)
--- OUTSIDE RECORDS SUMMARY | 2024-04-24 03:40 | XMS_ITS | Clinical Summary ---
Author Organization [facility] Address [address] [place] [address]. [place], [place] [address] [place] [address] Care Team Providers Care Cook Fish And Chips Name Role Phone Rogers Harvey MD Primary [...] age to complete this topic Care Teams Cook Fish And Chips Relationship Specialty Start Date End Date Rogers Harvey MD [facility] [place] [address] PCP - General 06/25/14
--- OUTSIDE RECORDS SUMMARY | 2024-04-24 03:40 | XMS_ITS | Encounter Summary ---
Author Organization [facility] Address [facility] [place] [address] [place] [address] Care Team Providers Care Parking Enforcement Specialist Name Role Phone Rogers Harvey MD Primary Care Provider Encounter Details Date Type Department Care Team (Late st Contact Info) Description 06/25/2014 Abstract [facility] [place] [address] Román Lr MD [address] [place] [address] [address] [place] [address] Social History Tobacco Use Types Packs/Day Years [...] Diagnosis Major depressive disorder, recurrent episode, moderate ([facility]) Major depressive disorder, recurrent episode, moderate documented in this encounter Care Teams Parking Enforcement Specialist Relationship Specialty Start Date End Date Rogers Harvey MD [address] [place] [address] PCP - General 06/25/14 documented as of this encounter
--- OUTSIDE RECORDS SUMMARY | 2024-04-24 03:40 | XMS_ITS | Encounter Summary ---
Author Organization [facility] Address [address] [place] [address]. [place], [place] [address] [place] [address] Care Team Providers Care Agriculture Sales Account Manager Name Role Phone Rogers Harvey MD Primary Care Provider [phone] Encounter Details Date Type Department Care Team (Late st Contact Info) Description 03/10/2020 Patient Self-Triage MYCHART DEPARTMENT [address] [place] [address] Veron[facility] Provider Social History Tobacco Use Types Packs/Day [...] on filedocumented in this encounter Care Teams Agriculture Sales Account Manager Relationship Specialty Start Date End Date Rogers Harvey MD [address] [place] [address] PCP - General 06/25/14 documented as of this encounter
--- OUTSIDE RECORDS SUMMARY | 2024-04-24 03:42 | XMS_ITS | Encounter Summary ---
Author Organization [employer] Address [address] [place] [address] Care Team Providers Care Manager Wireless Name Role Phone Unavailable Primary Care Provider Unavailabl e Encounter Details Date Type Department Care Team (Latest Contact Info) Description 10/25/2006 Outpatient Historical HIS CARD DIRECT MARKETING SPECIALIST Rogers Manuel MD [address] [facility] [address] [place] [address] Other Chest Pain (Primary Dx) Social History [...]
--- OUTSIDE RECORDS SUMMARY | 2024-04-24 03:42 | XMS_ITS | Clinical Summary ---
Author Organization [employer] Address [address] Hamn: Epic Prelude ADT AVERY MCRAE [address] Care Team Providers Care Delivery Motorcycle Driver Name Role Phone Unavailable Primary Care Provider [...]
--- OUTSIDE RECORDS SUMMARY | 2024-04-24 12:27 | XMS_ITS | CONTINUITY OF CARE DOCUMENT ---
Author Name christina rhiannaeron Address Unknown Organization [facility] Address [address] [facility] [address] [place] [address] Phone [phone] Care Team Providers Care Lay Midwife Name Role Phone Lexii BURNS, Nacho Unavailable RAHEEL CONTROL ELECTRICIAN, MARIE Unavailable RAHEEL CONTROL ELECTRICIAN, MARIE Unavailable [phone] PROBLEMS Condition Status Date Provider Notes Dyspnea [...] Diag nosis - In-person encounter Office Visit Jua nCarlos Sánchez MD [place] [facility] ScreeningChest painObesityTobacco abuseDepressionAsthmaAnxietyAbnormal EKGDyspnea on exertion [...] MD smoking history, total pack/day 20 Doreen Bush cigarette use yes Doreen livingston smoking status Current every day smoker T will Bush INSURANCE PROVIDERS Payer name Policy type / Coverage type [place] red [employer] party ID [employer] [facility] Medicaid [id number] TREATMENT PLAN Date Name Performer [id number],S, H as lost 48 lbs in the last 4 months which she attributes to stress. Juan Carlos Sánchez MD [id number],W, S harp, stabbing quality, which is different from the usual dull achy anxiety related pain. She has an abnormal EKG and says she is more dyspneic on exertion than she used to be. As she has several risk factors for CAD, we will check a stress test to r/o obstructive CAD and evaluate her LVF. Juan Carlos Sánchez MD [id number],N, Juan Carlos Sánchez MD [id number],S, F /w psychiatry. Juan Carlos Sánchez MD [id number],S, T he Patient was reencouraged to stop [...]
--- OUTSIDE RECORDS SUMMARY | 2024-04-24 12:27 | XMS_ITS | Patient Health Summary ---
Author Organization [facility] Address [address] [place] [address] Care Team Providers Care Store Stock Associate Name Role Phone Unavailable Primary Care Provider Unavailabl e Note from [facility],non-owned Affiliates and Associated Physician Practices is amultiple site organization consisting of ambulatory clinics and hospital sitesin [place], [place], [place] and [place]. This disclosure is being madepursuant to the Care Everywhere program and may not contain all information available regarding this patient. Last updated 17.[facility] [employer] Allergies * Penicillins(Rash) -Medium Criticality Medications * [...]
--- OUTSIDE RECORDS SUMMARY | 2024-04-24 12:27 | XMS_ITS | Encounter Summary ---
Author Organization [facility] Address [address] [place] [address] [place] [address] Care Team Providers Care Makeup Artistry Instructor Name Role Phone Unavailable Primary Care Provider [...]
--- OUTSIDE RECORDS SUMMARY | 2024-04-24 12:27 | XMS_ITS | Encounter Summary ---
Author Organization [facility] Address [address] [place] [address]. [place], [place] [address] [place] [address] Care Team Providers Care Operations Manager Assistant Name Role Phone Rogers Harvey MD Primary Care Provider [phone] Encounter Details Date Type Department Care Team (Late st Contact Info) Description 03/10/2020 Patient Self-Triage MYCHART DEPARTMENT [address] [place] [address] [facility] Provider Social History Tobacco Use Types Packs/Day [...] on filedocumented in this encounter Care Teams Operations Manager Assistant Relationship Specialty Start Date End Date Rogers Harvey MD [address] [place] [address] PCP - General 06/25/14 documented as of this encounter
--- OUTSIDE RECORDS SUMMARY | 2024-04-24 12:27 | XMS_ITS | Referral Summary ---
Author Organization [facility] Address [address] [place] [address] Care Team Providers Care Level Vial Grinder Name Role Phone Unavailable Primary Care Provider Unavailabl e Source Comments [facility],non-owned Affiliates and Associated Physician Practices is amultiple site organization consisting of ambulatory clinics and hospital sitesin [place], [place], [place] and [place]. This disclosure is being madepursuant to the Care Everywhere program and may not contain all information available regarding this patient. Last updated 17.[facility] [employer] Allergies Active Allergy Reactions Criticality Noted Date [...]
--- OUTSIDE RECORDS SUMMARY | 2024-04-24 12:27 | XMS_ITS | Clinical Summary ---
Author Organization [facility] Address [address] [place] [address] Care Team Providers Care Acls Specialist Name Role Phone Unavailable Primary Care Provider Unavailabl e Source Comments [facility],non-owned Affiliates and Associated Physician Practices is amultiple site organization consisting of ambulatory clinics and hospital sitesin [place], [place] and [place]. This disclosure is being madepursuant to the Care Everywhere program and may not contain all information available regarding this patient. Last updated 17.[facility] [employer] Allergies Active Allergy Reactions Criticality Noted Date [...]
--- OUTSIDE RECORDS SUMMARY | 2024-04-24 12:27 | XMS_ITS | Clinical Summary ---
Author Organization [facility] Address [address] [place] [address]. [place], [place] [address] [place] [address] Care Team Providers Care Purification Operator Name Role Phone Rogers Harvey MD Primary Care Provider [phone] Social History Tobacco Use Types Packs/Day Years [...] age to complete this topic Care Teams Purification Operator Relationship Specialty Start Date End Date Rogers Harvey MD [facility] [place] [address] PCP - General 06/25/14
--- OUTSIDE RECORDS SUMMARY | 2024-04-24 12:27 | XMS_ITS | Patient Health Record ---
Author Organization [facility] Address [address] [place] [address] Care Team Providers Care Embedded Systems Engineer Name Role Phone Jamey Cabral Primary Care Provider [phone] Allergies Allergen (clinical drug ingredient) Drug/Non Drug Allergy documented on EMR Reaction Allergy Type Onset Date Status Penicillin hives Drug Allergy Active Reason For Referral No Information Medications Medication SIG (Take, Route, Frequency, Duration) Notes Start Date End Date Status Naproxen Sodium 550 MG 1 tablet with stephen d or milk as needed FOR PAIN Orally every 12 hrs 10/22/2021 Active Remeron 30 MG 1 tablet at bedtime Orally Once a day for 30 days Active Albuterol Sulfate HFA 108 (9 0 Base) MCG/ACT 1 puff as needed Inhalation every 4 hrs for 30 days Unknown NexIUM 24HR 20 MG 1 capsule Orally Onc e a day for 30 day(s) Unknown Magnesium 500 MG 1 tablet with a meal Orally Once a day for 30 day(s) Unknown Paxlovid 10 x 150 MG & 10 x 100MG as directed Orally 01/08/2022 Active hydroCHLOROthiazide 25 mg TAKE 1 TABLET BY MOUTH EVERY MORNING for 30 Unknown traZODone HCl 100 MG 1-2 tablets at bedtime Orally Once a day for 30 days Active busPIRone HCl 10 MG 1 tablet Orally thre e times daily for 30 days Active Mirtazapine 30 MG TAKE 1 TABLET BY MOUTH EVERY DAY AT BEDTIME FOR 30 DAYS for 30 Active Prazosin HCl 5 MG 1 capsule at bedtime Orally at night for 30 days Active Cymbalta 30 MG 1 capsule Orally Onc e a day for 30 days Active Prazosin HCl 1 MG 1 capsule at bedtime Orally at night for 30 day(s) Active diazePAM 2 MG 1 tablet as needed Orally Once a day for 30 days 01/26/2022 Active Cymbalta 60 MG 2 capsules Orally Once a day for 30 days Active Social History Tobacco Use: Social History Observation Description Date Details (start date - stop date) Current Smoker NA - NA Sex Assigned At : Social History Observation Description Sex Assigned At Female Dont use, Tobacco Use/Smoking Question Answer Notes Are you a current every day smoker Additional Findings: Tobacco User Moderate cigar ette smoker (10-19 cigs/day) Problems Problem Type SNOMED Code ICD Code Onset Dates Problem Status W/U Status Risk Notes Problem Morbid obesity (disorder) (992249547) Morbid (severe) obesity due to excess calories (E66.01) Active confirmed Problem Tobacco user (679589096) Nicotine dependence, unspecified, uncomplicated (F17.200) Active confirmed Problem 72917973 PTSD (post-traumatic stress disorder) (F43.10) 2 Active confirmed Problem 55736700 Anxiety (F41.9) Active confirmed Problem 55211236 Vitamin D deficiency (E55.9) Active confirmed Problem 19863727 Severe episode o f recurrent major depressive disorder, without psychotic features (F33.2) 2 Active confirmed Problem 20624934 Severe episode o f recurrent major depressive disorder, with psychotic features (F33.3) 2 Active confirmed Problem 849292972 Mild intermitten t asthma without complication (J45.20) Active confirmed Problem 05614769 Night terrors, 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) Active confirmed Problem 10387439 Hypertension, unspecified type (I10) 2 Active confirmed Problem 397326582 Obesity due to excess calories, unspecified classification, unspecified whether serious comorbidity present (E66.09) Active confirmed Problem 76829068 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) 2 Active confirmed Plan Of Treatment No Information Insurance Providers Payer Name Payer Address Payer Phone Subscriber Number Group Number Insured Name Patient Relationship to Insured Coverage Start Date Coverage End Date [employer] [facility] [address] [place] [address] [phone] [id number] Jackeline Gooden Self - patient is the insured 1 [facility] [address] [address] [place] [address] [id number] Jackeline Goodne Self - patient is the insured 1 [employer] [facility] [address] [place] [address] [id number] Jackeline Gooden Self - patient is the insured 1 Medical (General) History Medical History History ICD Code Anxiety F41.9 Hypertension, unspecified type I10 Mild intermittent asthma without complic ation J45.20 Surgical History Surgery Date(Month/Year) oral surgery Uterine ablation Hospitalization History Reason Date(Month/Year) childbirth pneumonia
--- OUTSIDE RECORDS SUMMARY | 2024-04-24 12:27 | XMS_ITS | Encounter Summary ---
Author Organization [facility] Address [facility] [facility] [place] [address] [place] [address] Care Team Providers Care Music Therapy Specialist Name Role Phone Rogers Harvey MD Primary Care Provider Encounter Details Date Type Department Care Team (Late st Contact Info) Description 06/25/2014 Abstract [facility] [place] [address] Román Lr MD [address] [place] [address] [address] [place] [address] Social History Tobacco Use Types Packs/Day Years [...] Diagnosis Major depressive disorder, recurrent episode, moderate ([facility]) Major depressive disorder, recurrent episode, moderate documented in this encounter Care Teams Music Therapy Specialist Relationship Specialty Start Date End Date Rogers Harvey MD [address] [place] [address] PCP - General 06/25/14 documented as of this encounter
--- OUTSIDE RECORDS SUMMARY | 2024-04-24 12:30 | XMS_ITS | Clinical Summary ---
Author Organization [employer] Address [address] Hamn: Epic Prelude ADT AVERY MCRAE [address] Care Team Providers Care Lighting Technician Name Role Phone Unavailable Primary Care Provider [...]
--- OUTSIDE RECORDS SUMMARY | 2024-04-24 12:30 | XMS_ITS | Encounter Summary ---
Author Organization [employer] Address [address] [place] [address] Care Team Providers Care Surgical Garment Inspector Name Role Phone Unavailable Primary Care Provider Unavailabl e Encounter Details Date Type Department Care Team (Latest Contact Info) Description 10/25/2006 Outpatient Historical HIS CARD QA MANAGER Rogers Manuel MD [address] [facility] [address] [place] [address] Other Chest Pain (Primary Dx) Social History [...]
== END 2024-04-17 13:02 | disposition home or self-care (01) ==
PROVIDERS: Emergency Provider Student in an Organized Health Care Education/Training Program
DX: S32.010A Wedge compression fracture of first lumbar vertebra, initial encounter for closed fracture (principal); W18.30XA Fall on same level, unspecified, initial encounter; J45.909 Unspecified asthma, uncomplicated; F41.8 Other specified anxiety disorders
CPT/HCPCS: 72100; 96372; 99283; A9270